=== PATIENT | male | born 1940 | race American Indian/Alaskan Native ===

== ENCOUNTER 2020-04-23 04:44 | Day surgery (SDC) | payer OTHER, BC ==
[2020-04-22 13:49] VITALS: BMI 22.6
[2020-04-23] MEDS ORDERED: LIDOCAINE HCL/PF 2% SDV 5ML VIAL ONE (07:57)
[2020-04-23] MEDS ORDERED: PROPOFOL 20 ML ONE (07:57)
[2020-04-23] MEDS ORDERED: oxyCODONE HCL 5 MG TABLET PO PRN (08:29)
[2020-04-23] MEDS ORDERED: DEXTROSE 5%-0.45% SALINE 1,000 ML IV SCH (08:30)
[2020-04-23] MEDS ORDERED: ONDANSETRON 4 MG/2 ML VIAL IVPUSH PRN (08:41)
[2020-04-23] MEDS ORDERED: LACTATED RINGERS SOLUTION 1,000 ML IV SCH (08:45)
[2020-04-23 12:06] VITALS: BP 141/79; PULSE 69; TEMP 97.3
== END 2020-04-23 11:50 | disposition home or self-care (01) ==
LOC: JASU-SURG 04:44
PROVIDERS: ATTEND Urology
PROC: 0VT08ZZ Resection of Prostate, Via Natural or Artificial Opening Endoscopic (ICD-10-PCS; principal; 2020-04-23 07:30)
DX: N40.1 Benign prostatic hyperplasia with lower urinary tract symptoms (principal); R33.8 Other retention of urine
CPT/HCPCS: 82962; 94760